=== PATIENT | male | born 1955 | race African-American/Black ===

== ENCOUNTER 2020-04-27 07:45 | Emergency (ER) | payer MEDICARE, MEDICAID ==
[~2020-04-27] VITALS: Ht 175.3 cm; Wt 99.8 kg
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
[2020-04-27 07:52] VITALS: BP 160/80
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
--- NOTE | 2020-04-27 08:08 | NUR ---
ED Nurse Note: Patient stated he would not like pain medication when it was offered to him by ERMD.
--- NOTE | 2020-04-27 08:20 | NUR ---
ED Nurse Note: Xray at bedside.
--- NOTE | 2020-04-27 08:37 | Diagnostic Imaging Report ---
EXAM: XR Chest, 1 View CLINICAL HISTORY: PAIN TECHNIQUE: Frontal view of the chest. COMPARISON: No relevant prior studies available. FINDINGS/IMPRESSION: No focal consolidation, pleural effusion, or pneumothorax. Left base atelectasis. Cardiomegaly.
--- NOTE | 2020-04-27 08:46 | Diagnostic Imaging Report ---
EXAM: XR Left Tibia and Fibula, 2 Views CLINICAL HISTORY: PAIN TECHNIQUE: Frontal and lateral views of the left tibia and fibula. COMPARISON: No relevant prior studies available. FINDINGS/IMPRESSION: No acute fracture or dislocation. Mild soft tissue prominence along the anterior tibia, spanning a distance of approximately 11.5 cm with the center located 16 cm distal to the knee joint. No radiopaque foreign body. Mild osseous demineralization. The ankle mortise is symmetric. Minimal soft tissue swelling around the ankle.
[2020-04-27] MEDS ORDERED: IBUPROFEN600 M1 ORAL (09:23)
[2020-04-27 09:30] VITALS: BP 154/79
--- NOTE | 2020-04-27 09:30 | NUR ---
ER DISCHARGE NOTE: Patient is cleared to be discharged per ERMD, pt is aox4, on room air, with stable vital signs. pt was given dc and prescription instructions, pt was able to verbalize understanding regarding home care of injuries and f/u care, pt id band removed. pt is able to ambulate with steady gait. pt took all belongings.
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
== END 2020-04-27 09:30 | disposition home or self-care (01) ==
LOC: EDBD 07:45 → EMR 08:10
DX: S20.219A Contusion of unspecified front wall of thorax, initial encounter (principal); M79.605 Pain in left leg; V03.99XA Pedestrian with other conveyance injured in collision with car, pick-up truck or van, unspecified whether traffic or nontraffic accident, initial encounter; Y92.410 Unspecified street and highway as the place of occurrence of the external cause; I10 Essential (primary) hypertension
CPT/HCPCS: 71045; 99284